=== PATIENT | male | born 1975 | race Caucasian/White ===

== ENCOUNTER 2017-01-25 13:47 | Emergency (ER) | payer BC ==
[2017-01-25 13:53] VITALS: BP 139/94; PULSE 116; TEMP 98; BMI 25.8
[2017-01-25] MEDS ORDERED: DIPHTH,PERTUSS(ACELL),TET 0.5 ML DISP.SYRIN IM ONE (14:03)
--- NOTE | 2017-01-25 14:47 | PDOC ---
Attending Attestation - Resident Resident Name: Jose Cruz Rodríguez - ED Attending Attestation I have performed the following: I have examined & evaluated the patient, The case was reviewed & discussed with the resident, I agree w/resident's findings & plan, Exceptions are as noted - HPI HPI: 01/25/17 14:41 Agree with the resident's HPI as documented in the electronic medical record. - Physicial Exam PE: 01/25/17 14:42 Agree with the resident's physical examination as documented in the electronic medical record. - Medical Decision Making 01/25/17 14:42 41-year-old right-hand dominant male with no significant past medical history presents to the emergency department with a laceration to his left index finger that he incurred approximately 15 hours prior to arrival to the ED while cutting cardboard with a knife. The wound appears clean and the finger is neurovascularly intact with no apparent tendon injury. There will be no suture repair of the wound given that the wound is > 8 hours old. Plan: 1. Tetanus toxoid 2. The wound has been irrigated and dressed 3. Prophylactic antibioticsKeflex 500 mg twice a day 5 days line 4. Wound check in 2 days 5. Ibuprofen as needed for pain 6. Return to the emergency department if wound appears red, swollen, purulent drainage, fever or any other symptoms.
--- NOTE | 2017-01-25 15:00 | PDOC ---
History of Present Illness - General Chief Complaint: Laceration Stated Complaint: LEFT FINGER LAC Time Seen by Provider: 01/25/17 14:03 History Source: Patient Exam Limitations: No Limitations - History of Present Illness Initial Comments: 01/25/17 14:55 The patient is a 41M with no PMH who presents after sustaining a finger laceration last night. He states that he had a few beers and was cutting cardboard then cut the palmar surface of his L hand, second finger. He does not know his tetanus status. All: none Past History - Past Medical History Allergies/Adverse Reactions: Allergies Allergy/AdvReac Type Severity Reaction Status Date / Time No Known Allergies Allergy Verified 01/25/17 13:48 Home Medications: Ambulatory Orders NK [No Known Home Medication] 01/25/17 Other medical history: DENIES - Psycho/Social/Smoking Cessation Hx Anxiety: No Suicidal Ideation: No Smoking History: Current some day smoker Number of Cigarettes Smoked Daily: 2 Information on smoking cessation initiated: Yes 'Breaking Loose' booklet given: 01/25/17 Hx Alcohol Use: Yes Drug/Substance Use Hx: No Substance Use Type: Alcohol Review of Systems - Review of Systems Able to Perform ROS?: Yes Is the patient limited Portuguese proficient: No Constitutional: No: Chills, Fever Integumentary: No: Bruising, Dryness, Erythema, Pallor, Pruritus, Rash Neurological: No: Numbness, Tingling *Physical Exam - Vital Signs Last Vital Signs Temp Pulse Resp BP Pulse Ox 98 F 116 H 18 139/94 100 01/25/17 13:48 01/25/17 13:48 01/25/17 13:48 01/25/17 13:48 01/25/17 13:48 - Physical Exam General Appearance: Yes: Nourished, Appropriately Dressed HEENT: positive: Normal Voice, Hearing Grossly Normal Integumentary: positive: Other (1.5 cm laceration on the distal border of the PIP of 2nd digit L hand. Able to move the finger, no numbness, tingling, weakness in finger) Neurologic: positive: Motor Strength 5/5, Respond to painful stimul. negative: Numbness, Sensory Deficit Procedures - Laceration/Wound Repair Left Hand 2nd digit Wound Length: to 2.5 cm Wound Explored: clean Wound's Depth, Shape: superficial Irrigated w/ Saline: Yes Betadine Prep: Yes Anesthesia: 1% Lidocaine Amount of Anesthetic (ccs): 2 (cc) Wound Debrided: minimal Sterile Dressing Applied: Yes Splint Applied: No ED Treatment Course - Medications Given in the ED: ED Medications Discontinued Medications Generic Name Dose Route Start Last Admin Trade Name Franky PRN Reason Stop Dose Admin Diphtheria/Tetanus/Acell Pertussis 0.5 ml 01/25/17 14:03 01/25/17 14:12 Boostrix - IM 01/25/17 14:04 0.5 ml .ONCE ONE Administration Medical Decision Making - Medical Decision Making 01/25/17 14:59 The patient is a 41M who presented after sustaining a lac to his 2nd digit on his L hand. Because he is >12 hours since time of injury, we will clean the wound and let it heal by secondary intent. We informed him to look out for numbness, tingling, weakness, fever, chills, redness, itching, and pus coming from the site of incision. He received his tetanus shot. He understands and is ready for d/c. *DC/Admit/Observation/Transfer Diagnosis at time of Disposition: Laceration - Discharge Dispostion Disposition: HOME Condition at time of disposition: Improved Admit: No - Patient Instructions Printed Discharge Instructions: DI for Laceration Repair Additional Instructions: Please return to the ER if symptoms persist, worsen, or if new symptoms arise. Please watch for fever, chills, redness, itching, or pus at the site. Please return in 48 hours to check the wound. Print Language: SWEDISH - Attestations Physician Attestion: 01/25/17 15:03 I, Dr. Jose Cruz Rodríguez, attest that this document has been prepared under my direction and personally reviewed by me in its entirety. I further attest, that it accurately reflects all work, treatment, procedures and medical decision -making performed by me.
[2017-01-25] MEDS ORDERED: CEPHALEXIN MONOHYDRATE 500 MG CAPSULE (UD) PO ONE (15:05)
[2017-01-25] MEDS ORDERED: CEPHALEXIN MONOHYDRATE 500 MG CAPSULE (UD) ONE (15:07)
== END 2017-01-25 15:12 | disposition home or self-care (01) ==
LOC: FER 13:47
PROC: 3E0234Z Introduction of Serum, Toxoid and Vaccine into Muscle, Percutaneous Approach (ICD-10-PCS; principal; 2017-01-25)
DX: S61.211A Laceration without foreign body of left index finger without damage to nail, initial encounter (principal); W26.0XXA Contact with knife, initial encounter; Y93.89 Activity, other specified; Y92.9 Unspecified place or not applicable; F17.210 Nicotine dependence, cigarettes, uncomplicated
CPT/HCPCS: 90715; 99282-25

== ENCOUNTER 2017-01-27 09:25 | Emergency (ER) | payer BC ==
[2017-01-27 09:52] VITALS: BP 142/100; PULSE 85; TEMP 98.2; BMI 25.8
--- NOTE | 2017-01-27 09:55 | PDOC ---
Suture Removal/Wound Check HPI - History of Present Illness Chief Complaint: Revisit,Wound Recheck Stated Complaint: wound Time Seen by Provider: 01/27/17 09:51 - Onset of Previous Treatment Comment:: 01/27/17 11:44 Laceration second finger left was examined. It appears to be healing well. There is a small amount of subcutaneous tissue protruding. This was minimally debrided, the wound was dressed with bacitracin and tube gauze, and wound care instructions were given The wound appeared to be extremely superficial, involving only the skin and limited subcutaneous tissue, there was full range of motion of the DIP joint and no sensory deficit could be demonstrated. The patient was instructed to have the wound checked if there was any sign of infection, including increased pain, swelling, redness, or purulent discharge. He was also advised that if there was numbness or tingling of the fingertip which persisted more than 1 or 2 days, there may be nerve damage, which could be repaired and avoid potential disability by seeing a plastic surgeon within the next week. He understood and agrees. He will follow-up as directed Past History - Past Medical History Allergies/Adverse Reactions: Allergies No Known Allergies Allergy (Verified 01/27/17 09:26) Home Medications: Ambulatory Orders Cephalexin Monohydrate [Keflex -] 500 mg PO BID #14 capsule 01/25/17 - Social History Smoking Status: Current some day smoker Number of Ciarettes Per Day: 2 *DC/Admit/Observation/Transfer Diagnosis at time of Disposition: Encounter for wound re-check - Discharge Dispostion Condition at time of disposition: Stable Admit: No - Referrals Referrals: Irwin Silvestre MD [Staff Physician] - - Patient Instructions Printed Discharge Instructions: DI for Debridement of a Wound, Infection, or Burn Additional Instructions: Change dressing daily, applying antibiotic ointment and keeping covered until healed. If there is numbness or tingling of the fingertip which persists, there could be a small nerve that is damaged. This nerve can be repaired to prevent future disability. It would be necessary to consult a plastic surgeon for further evaluation and treatment, which should be done within 1 week. Otherwise, recheck immediately if sign of infection, which may include increased pain, swelling, redness, heat, pus or other drainage.
== END 2017-01-27 10:05 | disposition home or self-care (01) ==
LOC: FER 09:25
DX: Z48.00 Encounter for change or removal of nonsurgical wound dressing (principal)
CPT/HCPCS: 99281-25